=== PATIENT | female | born 1975 | race Caucasian/White ===

== ENCOUNTER 2020-08-28 21:59 | Emergency (ER) | payer OTHER ==
[~2020-08-28 21:59] MED LIST: K-DUR20 MEQ PO; MAG-OXIDE 400M400 MG PO; ZOFRAN8 MG PO
[2020-08-28 23:25] LABS: BASOPHIL 0.4 % (0-2); EOSINOPHIL 3.3 % (0-5); HCT 33.6 % (37.0-47.0); HGB 11.6 g/dl (12.5-16.0); LYMPHOCYTE 31.4 % (15-48); MCH 27.8 pg (25.0-31.0); MCHC 34.5 g/dL (32.0-36.0); MCV 80.6 fL (78.0-100.0); MONOCYTE 7.5 % (0-12); NEUTROPHIL 57.2 % (41-80); NRBC 0; PLT 320 K/uL (150-400); RBC 4.17 M/uL (4.20-5.40); RDW 13.3 % (11.5-14.0); WBC 8.3 K/uL (4.0-10.5)
[2020-08-28 23:42] LABS: ALBUMIN 3.9 g/dL (3.4-5.0); BILIRUBIN - TOTAL 0.5 mg/dL (0.2-1.0); BUN/CREAT RATIO (CALC) 6.8 RATIO; CREATININE 0.59 mg/dL (0.51-0.95); GLOBULIN (CALCULATION) 3.4 g/dL; POTASSIUM 3.4 mmol/L (3.5-5.1); TOTAL PROTEIN 7.3 g/dL (6.4-8.2)
[2020-08-28 23:50] LABS: TOTAL CELL COUNT 100
[2020-08-28 23:51] LABS: BAND 0 % (0-10); BASOPHIL(M) 0 % (0-2); EOSINOPHIL(M) 3 % (0-5); LYMPHOCYTE(M) 33 % (15-48); MONOCYTE(M) 4 % (0-12); NEUTROPHILS(M) 60 % (41-80)
[2020-08-28 23:52] LABS: PLATELET ESTIMATE NORMAL; PLATELET MORPHOLOGY NORMAL
[2020-08-29 00:24] LABS: BILIRUBIN NEGATIVE (NEGATIVE); BLOOD 2+ Ery/uL (NEGATIVE); CLARITY CLEAR (CLEAR); COLOR YELLOW (YELLOW); GLUCOSE (U) NORMAL (NORMAL); LEUKOCYTES TRACE Leu/uL (NEGATIVE); NITRITE POSITIVE (NEGATIVE); PROTEIN NEGATIVE (NEGATIVE); SPECIFIC GRAVITY 1.025 (1.001-1.030); UROBILINOGEN 0.2 mg/dL (0.2-1.0)
[2020-08-29 00:31] LABS: BACTERIA 4+
[2020-08-29] MEDS ORDERED: METRONIDAZOLE500 MG PO (03:31)
[2020-08-29] MEDS ORDERED: CIPRO500 MG PO (03:31)
[2020-08-29] MEDS ORDERED: ZOFRAN4 M1 PO (03:39)
[2020-08-29] MEDS ORDERED: BACTRIM DS TAB1 EACH PO (03:41)
== END 2020-08-29 04:07 | disposition home or self-care (01) ==
LOC: FER 21:59
PROVIDERS: Emergency Medicine
DX: R11.2 Nausea with vomiting, unspecified (principal); N39.0 Urinary tract infection, site not specified; F17.210 Nicotine dependence, cigarettes, uncomplicated
CPT/HCPCS: 36415; 80053; 81001; 83690; 87076; 87088; 87186; J2405; J7030

== ENCOUNTER 2021-06-07 06:05 | Emergency (ER) | payer OTHER ==
[~2021-06-07 06:05] MED LIST changes: +BACTRIM DS TAB1 EACH PO; +CIPRO500 MG PO; +METRONIDAZOLE500 MG PO; +ZOFRAN4 M1 PO
[2021-06-07 06:58] LABS: BASOPHIL 0.2 % (0-2); HGB 15.5 g/dl (12.5-16.0); LYMPHOCYTE 9.5 % (15-48); MCH 28.8 pg (25.0-31.0); MCHC 33.7 g/dL (32.0-36.0); MCV 85.5 fL (78.0-100.0); MPV 9.8 fL (6.0-9.5); NEUTROPHIL 85.8 % (41-80); NRBC 0; PLT 356 K/uL (150-400); RBC 5.38 M/uL (4.20-5.40); RDW 14.2 % (11.5-14.0); WBC 13.3 K/uL (4.0-10.5)
[2021-06-07 07:55] LABS: INR 1.02 (0.9-1.2); PROTHROMBIN TIME 12.8 SECONDS (11.8-13.4); PTT 22.6 SECONDS (24.4-34.7)
[2021-06-07 08:06] LABS: LACTIC ACID 2.6 mmol/L (0.4-1.9)
[2021-06-07 08:14] LABS: ALBUMIN 3.8 g/dL (3.4-5.0); BILIRUBIN - TOTAL 0.5 mg/dL (0.2-1.0); CREATININE 0.95 mg/dL (0.51-0.95); FT4 (FREE T4) 1.5 ng/dL (0.76-1.46); GLOBULIN (CALCULATION) 3.4 g/dL; MAGNESIUM 1.6 mg/dL (1.8-2.4); POTASSIUM 3.6 mmol/L (3.5-5.1); TOTAL PROTEIN 7.2 g/dL (6.4-8.2)
[2021-06-07 09:22] LABS: BILIRUBIN NEGATIVE (NEGATIVE); BLOOD NEGATIVE Ery/uL (NEGATIVE); CLARITY CLEAR (CLEAR); COLOR YELLOW (YELLOW); GLUCOSE (U) NORMAL (NORMAL); LEUKOCYTES 2+ Leu/uL (NEGATIVE); NITRITE NEGATIVE (NEGATIVE); PROTEIN TRACE (LOW) mg/dL (NEGATIVE); SPECIFIC GRAVITY 1.025 (1.001-1.030); UROBILINOGEN 0.2 mg/dL (0.2-1.0)
[2021-06-07 09:26] LABS: AMPHETAMINES NEGATIVE (NEGATIVE); BARBITURATES NEGATIVE (NEGATIVE); ECSTASY (MDMA) POSITIVE (NEGATIVE); MARIJUANA (THC) POSITIVE (NEGATIVE); METHADONE NEGATIVE (NEGATIVE); OPIATES NEGATIVE (NEGATIVE); OXYCODONE NEGATIVE (NEGATIVE)
[2021-06-07 09:42] LABS: BACTERIA 3+; SQUAMOUS EPITHELIAL CELLS 20-50
[2021-06-07 09:44] LABS: MUCOUS TRACE
[2021-06-07] MEDS ORDERED: ONDANSETRON ODT4 MG PO (10:55)
== END 2021-06-07 13:48 | disposition home or self-care (01) ==
LOC: FER 06:05
PROVIDERS: Emergency Medicine
DX: B34.9 Viral infection, unspecified (principal); E03.9 Hypothyroidism, unspecified; F17.200 Nicotine dependence, unspecified, uncomplicated; E66.9 Obesity, unspecified; Z28.310 Unvaccinated for COVID-19
CPT/HCPCS: 36415; 80053; 80305; 81001; 82530; 83605; 83615; 83690; 83735; 84145; 84439; 84443; 84484; 85025; 85610; 85730; 93005; J2060; J2405; J7030